=== PATIENT | male | born 1990 | race African-American/Black ===

== ENCOUNTER 2022-08-10 13:10 | Emergency (ER) | payer SELFPAY ==
[2022-08-10] MEDS ORDERED: Lidocaine 1% PF 5 ML VIAL ONE (14:56)
== END 2022-08-10 15:56 | disposition home or self-care (01) ==
LOC: ERS 13:10
DX: S01.81XA Laceration without foreign body of other part of head, initial encounter (principal); F17.210 Nicotine dependence, cigarettes, uncomplicated; W18.30XA Fall on same level, unspecified, initial encounter
CPT/HCPCS: 12013

== ENCOUNTER 2022-11-10 22:21 | Emergency (ER) | payer BC, SELFPAY ==
[2022-11-10 22:58] LABS: #Eosinphils 0.1 thou/uL (0.0-0.7); #Monocytes 0.5 thou/uL (0.11-0.59); %Basophils 0.8 % (0.0-1.0); %Eosinophils 2.4 % (0.0-10.0); %Lymphocytes 27.1 % (21.0-51.0); %Monocytes 9.6 % (0.0-10.0); %Neutrophils 59.9 % (42.0-75.0); Hematocrit 42.3 % (42.0-52.0); Hemoglobin 13.9 g/dL (14.0-18.0); Mean Corpuscular HGB CONC 32.9 g/dL (32.0-36.0); Mean Corpuscular Volume 94.2 fl (78.0-98.0); Mean Platelet Volume 8.7 fL (7.4-10.4); Platelet Count 293 10x3/uL (130-400); RBC Distribution Width 13.2 % (11.5-14.5); Red Blood Cell (RBC) Count 4.49 mill/uL (4.70-6.10)
[2022-11-10 23:21] LABS: ALT (SGPT) 25 U/L (8-55); AST (SGOT) 30 U/L (5-34); Albumin 3.9 g/dL (3.5-5.0); Alkaline Phosphatase 50 U/L (40-110); Anion Gap 13 mmol/L (10-20); BUN (Urea Nitrogen) 9 mg/dL (8.9-20.6); Bilirubin, Total 0.5 mg/dL (0.2-1.2); CK (CPK) 173 U/L (30-200); Calc. Creatinine Clearance 0 mL/min (70-130); Calcium 9.1 mg/dL (7.8-10.44); Carbon Dioxide 23 mmol/L (22-29); Chloride 105 mmol/L (98-107); Estimated GFR 91; Globulin 2.4 g/dL (2.4-3.5); Glucose 80 mg/dL (70-105); Protein, Total 6.3 g/dL (6.0-8.3); Sodium 137 mmol/L (136-145)
[2022-11-10 23:23] LABS: Troponin I Less than 0.010 ng/mL (< 0.028)
[2022-11-11] MEDS ORDERED: levETIRAcetam 500 MG TAB PO SCH (00:45)
[2022-11-11] MEDS ORDERED: lamoTRIgine 25 MG TAB PO SCH (00:45)
== END 2022-11-11 01:14 | disposition home or self-care (01) ==
LOC: ERS 22:21
DX: R56.9 Unspecified convulsions (principal); F17.210 Nicotine dependence, cigarettes, uncomplicated
CPT/HCPCS: 36415; 80053; 82550; 84484; 85025; 93005

== ENCOUNTER 2023-01-24 13:15 | Emergency (ER) | payer BC ==
[2023-01-24] MEDS ORDERED: levETIRAcetam 500 MG/5 ML VIAL ONE (14:07)
[2023-01-24] MEDS ORDERED: lamoTRIgine 25 MG TAB PO SCH (14:15)
== END 2023-01-24 14:36 | disposition home or self-care (01) ==
LOC: ERS 13:15
DX: G40.909 Epilepsy, unspecified, not intractable, without status epilepticus (principal); F17.210 Nicotine dependence, cigarettes, uncomplicated
CPT/HCPCS: 36416; 99284; J1953

== ENCOUNTER 2023-02-21 14:23 | Emergency (ER) | payer BC | END 2023-02-21 16:38 | disposition home or self-care (01) | LOC: ERS 14:23 | DX: G40.909 Epilepsy, unspecified, not intractable, without status epilepticus (principal); R29.710 NIHSS score 10; F17.210 Nicotine dependence, cigarettes, uncomplicated; Z91.119 Patient's noncompliance with dietary regimen due to unspecified reason; Z79.899 Other long term (current) drug therapy | CPT/HCPCS: 99283 ==